=== PATIENT | female | born 1990 | race Caucasian/White ===

== ENCOUNTER 2017-07-10 01:06 | Emergency (ER) | payer MEDICAID ==
[~2017-07-10] VITALS: Ht 152.4 cm; Wt 64.2 kg
[~2017-07-10 01:06] MED LIST: ACET-1059 PO; CARI350T PO; CYCL-1 PO; DICY10CA88 PO; ESCI20TA PO; HYDR-569 PO; IBUP-1986 PO; METH-360 PO; ONDA4TAB6 PO; ONDA8TAB9 PO; SUCR1ORA2 PO; SUMA50TA PO; TRAM50TA2; TRAM50TA2 PO; ZOLP5TAB2 PO
[2017-07-10] MEDS ORDERED: ondansetron/PF 4mg/2ml inj IV ONE (03:55)
[2017-07-10] MEDS ORDERED: morphine 4 MG/ML inj SYRINge IV ONE (03:55)
[2017-07-10] MEDS ORDERED: normal saline 1000ML IV soln IVB ONE (03:55)
[2017-07-10 06:10] VITALS: BP 142/96
[2017-07-10 07:07] LABS: ALANINE AMINOTRANSFERASE 23 U/L (12-78); ALBUMIN 3.2 G/DL (3.4-5.0); ALKALINE PHOSPHATASE 83 IU/L (46-116); ANION GAP 12 (8-16); ASPARTATE AMINO TRANSFERASE 25 U/L (10-37); BILIRUBIN,TOTAL 0.3 MG/DL (0.1-1.0); BLOOD UREA NITROGEN 18 MG/DL (7-18); BUN/CREATININE RATIO 33.3 (6.6-38.0); CALCIUM 8.6 MG/DL (8.5-10.1); CHLORIDE 108 MMOL/L (99-107); CREATININE 0.54 MG/DL (0.40-0.90); GLUCOSE 87 MG/DL (70-104); SODIUM 142 MMOL/L (135-145); TOTAL CARBON DIOXIDE 22.1 MMOL/L (24-32); TOTAL PROTEIN 6.3 G/DL (6.4-8.2); eGFR > 90 ML/MIN
[2017-07-10 07:24] LABS: BASOPHILS # (AUTO) 0.1 X10'3 (0-0.2); BASOPHILS % (AUTO) 1.1 % (0-1); EOSINOPHILS # (AUTO) 0.2 X10'3 (0-0.9); EOSINOPHILS % (AUTO) 3.3 % (0-6); HEMATOCRIT 36.5 % (35.0-45.0); HEMOGLOBIN 11.9 g/dl (12.0-16.0); LYMPHOCYTES % (AUTO) 56.1 % (21-51); MEAN CORPUSCULAR HEMOGLOBIN 27.4 PG (27.0-31.0); MEAN CORPUSCULAR HGB CONC 32.7 % (33.0-36.5); MEAN CORPUSCULAR VOLUME 83.8 FL (78-98); MONOCYTES # (AUTO) 0.3 X10'3 (0-0.9); NEUTROPHILS # (AUTO) 1.8 X10'3 (1.8-7.7); NEUTROPHILS % (AUTO) 33.5 % (42-75); PLATELET COUNT 170 X10'3 (140-440); RED BLOOD COUNT 4.36 X10'6 (4.20-5.60); RED CELL DISTRIBUTION WIDTH 15.2 % (11.5-14.5); WHITE BLOOD COUNT 5.4 X10'3 (4.5-11.0)
[2017-07-10 07:33] LABS: CLARITY,URINE CLEAR (Clear); COLOR,URINE YELLOW (Yellow); GLUCOSE, URINE NEGATIVE (Neg); KETONES,URINE NEGATIVE (Neg); LEUKOCYTE ESTERASE ,URINE NEGATIVE (Neg); NITRITES, URINE NEGATIVE (Neg); OCCULT BLOOD,URINE TRACE-LYSED (Neg); PROTEIN,URINE NEGATIVE (Neg); UROBILINOGEN,URINE 0.2 E.U/dL (0.2-1.0)
[2017-07-10 07:34] LABS: UA COLLECTION TYPE CLN CATCH MIDSTREAM
[2017-07-10 07:39] LABS: BACTERIA,URINE NONE SEEN /HPF (Neg); MUCUS STRANDS NONE SEEN /LPF (Neg); RBC,URINE NONE SEEN /HPF (0-2); SQUAMOUS EPITHELIAL CELL,UR NONE SEEN /LPF (FEW); WBC,URINE 0-4 /HPF (0-4)
== END 2017-07-10 09:01 | disposition home or self-care (01) ==
LOC: ER 01:07
DX: O72.1 Other immediate postpartum hemorrhage (principal); G89.29 Other chronic pain; F12.10 Cannabis abuse, uncomplicated; Z90.89 Acquired absence of other organs; Z98.890 Other specified postprocedural states; Z79.899 Other long term (current) drug therapy; Z56.0 Unemployment, unspecified
CPT/HCPCS: 36415; 76856; 80053; 81001; 83605; 85025; 87040; 87070; 87210; 96374; 96375; 99285; J2270; J2405

== ENCOUNTER 2018-01-09 09:38 | Emergency (ER) | payer MEDICAID ==
[~2018-01-09] VITALS: Ht 152.4 cm; Wt 70.8 kg
[~2018-01-09 09:38] MED LIST changes: +HYDR-4383 PO; -HYDR-569 PO
[2018-01-09 09:44] VITALS: BP 160/105
[2018-01-09] MEDS ORDERED: LORA-269 PO (09:48)
== END 2018-01-09 10:10 | disposition home or self-care (01) ==
LOC: ER 09:38
DX: G47.00 Insomnia, unspecified (principal); F41.9 Anxiety disorder, unspecified; F32.9 Major depressive disorder, single episode, unspecified; G89.29 Other chronic pain; F12.90 Cannabis use, unspecified, uncomplicated; Z90.89 Acquired absence of other organs; Z56.0 Unemployment, unspecified; Z87.440 Personal history of urinary (tract) infections; Z87.11 Personal history of peptic ulcer disease; Z79.899 Other long term (current) drug therapy
CPT/HCPCS: 99284

== ENCOUNTER 2018-06-09 21:58 | Emergency (ER) | payer MEDICAID ==
[~2018-06-09] VITALS: Ht 152.4 cm; Wt 74.4 kg
[~2018-06-09 21:58] MED LIST changes: +LORA-269 PO
[2018-06-09 22:46] LABS: URINE HCG NEGATIVE (NEG)
[2018-06-09 22:48] LABS: CLARITY,URINE SLIGHTLY CLOUDY (Clear); COLOR,URINE YELLOW (Yellow); GLUCOSE, URINE NEGATIVE (Neg); KETONES,URINE NEGATIVE (Neg); LEUKOCYTE ESTERASE ,URINE NEGATIVE (Neg); NITRITES, URINE NEGATIVE (Neg); OCCULT BLOOD,URINE NEGATIVE (Neg); PH,URINE 5.5 (4.8-8.0); PROTEIN,URINE NEGATIVE (Neg); UA COLLECTION TYPE CLN CATCH MIDSTREAM; UROBILINOGEN,URINE 0.2 E.U/dL (0.2-1.0)
[2018-06-09 22:56] LABS: BACTERIA,URINE 3+ /HPF (Neg); RBC,URINE 0-2 /HPF (0-2); SQUAMOUS EPITHELIAL CELL,UR MANY /LPF (FEW); WBC,URINE 0-4 /HPF (0-4)
[2018-06-09] MEDS ORDERED: ondansetron 4mg rapidly disintigrating tab PO ONE (23:10)
[2018-06-09] MEDS ORDERED: ketorolac tromethamine 15mg/ml inj. IM ONE (23:10)
[2018-06-09] MEDS ORDERED: mag hydrox/Alum hydrox/simeth 30ml oral suspension PO ONE (23:10)
[2018-06-09 23:22] LABS: BASOPHILS # (AUTO) 0.1 X10'3 (0-0.2); BASOPHILS % (AUTO) 0.7 % (0-1); EOSINOPHILS # (AUTO) 0.1 X10'3 (0-0.9); EOSINOPHILS % (AUTO) 1.6 % (0-6); HEMATOCRIT 38.8 % (35.0-45.0); HEMOGLOBIN 13.1 g/dl (12.0-16.0); LYMPHOCYTES # (AUTO) 3.2 X10'3 (1.1-4.8); LYMPHOCYTES % (AUTO) 35.5 % (21-51); MEAN CORPUSCULAR HEMOGLOBIN 29.5 PG (27.0-31.0); MEAN CORPUSCULAR HGB CONC 33.7 g/dL (33.0-36.5); MEAN CORPUSCULAR VOLUME 87.4 FL (78-98); MEAN PLATELET VOLUME 8.6 FL (7.4-10.4); MONOCYTES # (AUTO) 0.4 X10'3 (0-0.9); MONOCYTES % (AUTO) 4.6 % (2-12); NEUTROPHILS # (AUTO) 5.2 X10'3 (1.8-7.7); NEUTROPHILS % (AUTO) 57.6 % (42-75); PLATELET COUNT 233 X10'3 (140-440); RED BLOOD COUNT 4.44 X10'6 (4.20-5.60)
[2018-06-09 23:31] LABS: ALANINE AMINOTRANSFERASE 19 U/L (12-78); ALBUMIN/GLOBULIN RATIO 1.3 (1.1-1.5); ALKALINE PHOSPHATASE 59 IU/L (46-116); AMYLASE 31 U/L (25-115); ANION GAP 11 (8-16); ASPARTATE AMINO TRANSFERASE 13 U/L (10-37); BILIRUBIN,TOTAL 0.3 MG/DL (0.1-1.0); BLOOD UREA NITROGEN 21 MG/DL (7-18); BUN/CREATININE RATIO 27.3 (6.6-38.0); CHLORIDE 105 MMOL/L (99-107); CREATININE 0.77 MG/DL (0.40-0.90); GLUCOSE 84 MG/DL (70-104); LIPASE 91 U/L (73-393); SODIUM 141 MMOL/L (135-145); TOTAL CARBON DIOXIDE 24.6 MMOL/L (24-32); eGFR 88 ML/MIN
[2018-06-09 23:35] LABS: INR 1.1 INR
[2018-06-10] MEDS ORDERED: morphine 4 MG/ML inj SYRINge IV ONE (01:00)
[2018-06-10] MEDS ORDERED: ONDA4TAB6 PO (01:23)
[2018-06-10 01:48] VITALS: BP 142/92
--- NOTE | 2018-06-10 01:49 | NUR ---
Patient has no IV, morphine given IM in the left deltoid with verbal order from Casey Barnes.
== END 2018-06-10 01:50 | disposition home or self-care (01) ==
LOC: ER 21:59
DX: R10.12 Left upper quadrant pain (principal); R10.32 Left lower quadrant pain; R11.2 Nausea with vomiting, unspecified; G89.29 Other chronic pain; F12.90 Cannabis use, unspecified, uncomplicated; Z90.89 Acquired absence of other organs; Z98.890 Other specified postprocedural states; Z79.899 Other long term (current) drug therapy; Z56.0 Unemployment, unspecified
CPT/HCPCS: 36415; 80053; 81001; 81025; 82150; 83690; 85025; 85610; 96372; 96374; 99283; J1885; J2270

== ENCOUNTER 2018-08-09 00:02 | Emergency (ER) | payer MEDICAID ==
[~2018-08-09] VITALS: Ht 152.4 cm; Wt 75.0 kg
[2018-08-09 00:11] VITALS: BP 142/85
[2018-08-09 00:40] LABS: URINE HCG NEGATIVE (NEG)
[2018-08-09 00:45] LABS: CLARITY,URINE CLOUDY (Clear); COLOR,URINE YELLOW (Yellow); GLUCOSE, URINE NEGATIVE (Neg); KETONES,URINE NEGATIVE (Neg); LEUKOCYTE ESTERASE ,URINE NEGATIVE (Neg); NITRITES, URINE NEGATIVE (Neg); OCCULT BLOOD,URINE NEGATIVE (Neg); PROTEIN,URINE 30 mg/dl (Neg); UROBILINOGEN,URINE 0.2 E.U/dL (0.2-1.0)
[2018-08-09 00:50] LABS: UA COLLECTION TYPE CLN CATCH MIDSTREAM
[2018-08-09 00:51] LABS: BACTERIA,URINE FEW /HPF (Neg); RBC,URINE 0-2 /HPF (0-2); SQUAMOUS EPITHELIAL CELL,UR MANY /LPF (FEW); WBC,URINE 0-4 /HPF (0-4)
[2018-08-09] MEDS ORDERED: PHEN-716 PO (03:33)
[2018-08-09] MEDS ORDERED: ibuprofen 200mg tablet PO ONE (03:35)
[2018-08-09] MEDS ORDERED: phenazopyridine 100mg tablet PO ONE (03:35)
== END 2018-08-09 03:51 | disposition home or self-care (01) ==
LOC: ER 00:03
DX: S39.012A Strain of muscle, fascia and tendon of lower back, initial encounter (principal); R30.0 Dysuria; R39.15 Urgency of urination; R35.0 Frequency of micturition; G89.29 Other chronic pain; F41.9 Anxiety disorder, unspecified; F32.9 Major depressive disorder, single episode, unspecified; Z86.69 Personal history of other diseases of the nervous system and sense organs; Z85.89 Personal history of malignant neoplasm of other organs and systems; Z98.890 Other specified postprocedural states; Z90.89 Acquired absence of other organs; Z56.0 Unemployment, unspecified; Z79.899 Other long term (current) drug therapy; X58.XXXA Exposure to other specified factors, initial encounter; Y93.89 Activity, other specified; Y92.89 Other specified places as the place of occurrence of the external cause; Y99.8 Other external cause status
CPT/HCPCS: 36415; 81001; 81025; 87088; 87491; 99283

== ENCOUNTER 2018-08-26 18:25 | Emergency (ER) | payer MEDICAID ==
[~2018-08-26] VITALS: Ht 152.4 cm; Wt 76.0 kg
[~2018-08-26 18:25] MED LIST changes: +PHEN-716 PO
--- NOTE | 2018-08-26 20:37 | NUR ---
STREP SWAB COLLECTED AND SENT TO LAB
[2018-08-26] MEDS ORDERED: PENI500T2 PO (21:15)
[2018-08-26 21:23] VITALS: BP 125/81
== END 2018-08-26 21:24 | disposition home or self-care (01) ==
LOC: ER 18:25
DX: J02.0 Streptococcal pharyngitis (principal); B95.0 Streptococcus, group A, as the cause of diseases classified elsewhere; G89.29 Other chronic pain; F41.9 Anxiety disorder, unspecified; F32.9 Major depressive disorder, single episode, unspecified; Z86.69 Personal history of other diseases of the nervous system and sense organs; Z98.890 Other specified postprocedural states; Z90.89 Acquired absence of other organs; Z85.89 Personal history of malignant neoplasm of other organs and systems; Z56.0 Unemployment, unspecified
CPT/HCPCS: 87880; 99283

== ENCOUNTER 2019-01-18 22:49 | Emergency (ER) | payer MEDICAID ==
[~2019-01-18] VITALS: Ht 152.4 cm; Wt 77.3 kg
[2019-01-18] MEDS ORDERED: normal saline 1000ML IV soln IVB ONE (23:45)
[2019-01-18] MEDS ORDERED: proCHLORperazine 10 MG/2 ml inj IV ONE (23:45)
[2019-01-18] MEDS ORDERED: morphine 2 MG/ML inj. syringe IV PRN (23:45)
[2019-01-18] MEDS ORDERED: quetiapine 100mg tablet PO ONE (23:50)
[2019-01-18] MEDS ORDERED: ZOLP10TA5 PO (23:53)
[2019-01-18] MEDS ORDERED: QUEtiapine 25mg tablet PO ONE (23:55)
[2019-01-18] MEDS ORDERED: QUEtiapine 25mg tablet PO SCH (23:55)
[2019-01-19] MEDS ORDERED: QUEtiapine 25mg tablet PO ONE (00:25)
[2019-01-19 01:23] VITALS: BP 131/98
== END 2019-01-19 01:24 | disposition home or self-care (01) ==
LOC: ER 22:50
DX: G43.909 Migraine, unspecified, not intractable, without status migrainosus (principal); G47.00 Insomnia, unspecified; G89.29 Other chronic pain; F41.9 Anxiety disorder, unspecified; F32.9 Major depressive disorder, single episode, unspecified; Z79.899 Other long term (current) drug therapy; Z79.1 Long term (current) use of non-steroidal anti-inflammatories (NSAID); Z87.11 Personal history of peptic ulcer disease; Z90.89 Acquired absence of other organs; Z98.890 Other specified postprocedural states; Z56.0 Unemployment, unspecified
CPT/HCPCS: 96374; 96375; 99283; J0780; J2270; J7030

== ENCOUNTER 2019-02-15 16:06 | Emergency (ER) | payer MEDICAID ==
[~2019-02-15] VITALS: Ht 152.4 cm; Wt 72.7 kg
[~2019-02-15 16:06] MED LIST changes: +ZOLP10TA5 PO
[2019-02-15 16:07] VITALS: BP 142/102
[2019-02-15] MEDS ORDERED: ketorolac tromethamine 15mg/ml inj. IM ONE (17:10)
[2019-02-15] MEDS ORDERED: ZOLP5TAB8 PO (17:13)
== END 2019-02-15 17:40 | disposition home or self-care (01) ==
LOC: ER 16:06
DX: G43.909 Migraine, unspecified, not intractable, without status migrainosus (principal); G89.29 Other chronic pain; F41.9 Anxiety disorder, unspecified; F32.9 Major depressive disorder, single episode, unspecified; Z98.890 Other specified postprocedural states; Z90.89 Acquired absence of other organs; Z56.0 Unemployment, unspecified; Z79.899 Other long term (current) drug therapy
CPT/HCPCS: 96372; 99283; J1885

== ENCOUNTER 2019-02-17 14:49 | Emergency (ER) | payer MEDICAID ==
[~2019-02-17] VITALS: Ht 152.4 cm; Wt 72.0 kg
[~2019-02-17 14:49] MED LIST changes: +ZOLP5TAB8 PO
[2019-02-17] MEDS ORDERED: albuterol 2.5 MG/3 ML nebule NEB ONE (16:10)
[2019-02-17] MEDS ORDERED: AZIT-63 PO (18:19)
[2019-02-17] MEDS ORDERED: ALBU8.5H8 INH (18:19)
[2019-02-17] MEDS ORDERED: azithromycin 250mg tablet PO ONE (18:20)
[2019-02-17 18:29] LABS: D-DIMER 0.37 MG/L FEU (0-0.50)
[2019-02-17 18:52] VITALS: BP 133/92
[2019-02-17] MEDS ORDERED: DM/P240L8 PO (19:20)
== END 2019-02-17 19:25 | disposition home or self-care (01) ==
LOC: ER 14:50
DX: J40 Bronchitis, not specified as acute or chronic (principal); G43.909 Migraine, unspecified, not intractable, without status migrainosus; G89.29 Other chronic pain; Z56.0 Unemployment, unspecified; Z90.89 Acquired absence of other organs; Z98.890 Other specified postprocedural states; Z79.899 Other long term (current) drug therapy; Z79.2 Long term (current) use of antibiotics
CPT/HCPCS: 36415; 71046; 85379; 94640; 94760; 99284

== ENCOUNTER 2019-05-18 01:01 | Emergency (ER) | payer MEDICAID ==
[~2019-05-18] VITALS: Ht 154.9 cm; Wt 81.8 kg
[~2019-05-18 01:01] MED LIST changes: +ALBU8.5H8 INH; +DM/P240L8 PO; -ZOLP10TA5 PO; -ZOLP5TAB8 PO
[2019-05-18 01:05] VITALS: BP 146/118
[2019-05-18] MEDS ORDERED: ZOLP6.2526 PO (01:13)
[2019-05-18] MEDS ORDERED: SUMAtriptan succ. 6 MG/0.5ml vial SQ ONE (01:15)
== END 2019-05-18 01:21 | disposition home or self-care (01) ==
LOC: ER 01:02
DX: F41.9 Anxiety disorder, unspecified (principal); G43.909 Migraine, unspecified, not intractable, without status migrainosus; G89.29 Other chronic pain; F32.9 Major depressive disorder, single episode, unspecified; Z87.440 Personal history of urinary (tract) infections; Z56.0 Unemployment, unspecified; Z87.11 Personal history of peptic ulcer disease; Z79.899 Other long term (current) drug therapy
CPT/HCPCS: 99283; J3030

== ENCOUNTER 2019-05-20 07:55 | Emergency (ER) | payer MEDICAID ==
[~2019-05-20] VITALS: Ht 154.9 cm; Wt 72.7 kg
[~2019-05-20 07:55] MED LIST changes: +ZOLP6.2526 PO
[2019-05-20] MEDS ORDERED: SUMAtriptan succ. 6 MG/0.5ml vial SQ ONE (08:20)
[2019-05-20] MEDS ORDERED: ketorolac trometh inj. 60 MG/2 ML VIAL IM ONE (08:20)
[2019-05-20] MEDS ORDERED: divalproex sodium 250mg tablet PO ONE (08:20)
[2019-05-20] MEDS ORDERED: SUMA50TA PO (08:23)
--- NOTE | 2019-05-20 09:03 | NUR ---
reassesed patient head pain 09/27 but neasua is better, will continue to monitor
[2019-05-20 09:26] VITALS: BP 115/95
== END 2019-05-20 09:32 | disposition home or self-care (01) ==
LOC: ER 07:55
DX: G43.109 Migraine with aura, not intractable, without status migrainosus (principal); G89.29 Other chronic pain; F32.9 Major depressive disorder, single episode, unspecified; F41.0 Panic disorder [episodic paroxysmal anxiety]; R11.2 Nausea with vomiting, unspecified; Z87.440 Personal history of urinary (tract) infections; Z87.11 Personal history of peptic ulcer disease; Z56.0 Unemployment, unspecified
CPT/HCPCS: 96372; 99284; J1885; J3030

== ENCOUNTER 2019-05-26 23:53 | Emergency (ER) | payer MEDICAID ==
[~2019-05-26] VITALS: Ht 152.4 cm; Wt 72.7 kg
[2019-05-27 00:10] VITALS: BP 144/85
[2019-05-27] MEDS ORDERED: BUTA-281 PO (00:28)
[2019-05-27] MEDS ORDERED: ESCI-10 PO (00:28)
[2019-05-27] MEDS ORDERED: ketorolac trometh inj. 60 MG/2 ML VIAL IM ONE (00:30)
== END 2019-05-27 00:53 | disposition home or self-care (01) ==
LOC: ER 23:54
DX: G43.909 Migraine, unspecified, not intractable, without status migrainosus (principal); G89.29 Other chronic pain; F17.200 Nicotine dependence, unspecified, uncomplicated; Z56.0 Unemployment, unspecified; Z98.890 Other specified postprocedural states; Z90.89 Acquired absence of other organs; Z87.11 Personal history of peptic ulcer disease; Z79.899 Other long term (current) drug therapy
CPT/HCPCS: 96372; 99283; J1885

== ENCOUNTER 2019-11-17 20:55 | Emergency (ER) | payer MEDICAID ==
[~2019-11-17] VITALS: Ht 157.5 cm; Wt 80.8 kg
[~2019-11-17 20:55] MED LIST changes: +BUTA-281 PO; +ESCI-10 PO; -ZOLP6.2526 PO; +ZOLP6.2539 PO
[2019-11-17 22:38] VITALS: BP 110/65
[2019-11-17] MEDS ORDERED: SUMA50TA PO (23:15)
[2019-11-17] MEDS ORDERED: PROC-8 PO (23:15)
[2019-11-17] MEDS ORDERED: ZOLP5TAB2 PO (23:15)
== END 2019-11-17 23:27 | disposition home or self-care (01) ==
LOC: ER 20:55
DX: G43.909 Migraine, unspecified, not intractable, without status migrainosus (principal); G89.29 Other chronic pain; F41.9 Anxiety disorder, unspecified; F32.9 Major depressive disorder, single episode, unspecified; Z86.69 Personal history of other diseases of the nervous system and sense organs; Z87.11 Personal history of peptic ulcer disease; Z87.440 Personal history of urinary (tract) infections; Z85.41 Personal history of malignant neoplasm of cervix uteri; Z90.89 Acquired absence of other organs; Z98.890 Other specified postprocedural states; Z56.0 Unemployment, unspecified; Z79.899 Other long term (current) drug therapy
CPT/HCPCS: 99283

== ENCOUNTER 2020-02-15 20:26 | Emergency (ER) | payer MEDICAID ==
[~2020-02-15] VITALS: Ht 157.5 cm; Wt 88.6 kg
[~2020-02-15 20:26] MED LIST changes: +PROC-8 PO
[2020-02-15 20:39] VITALS: BP 143/95
[2020-02-15] MEDS ORDERED: dexamethasone sod phosphate 10mg/ml inj PO STA (20:44)
[2020-02-15] MEDS ORDERED: metoclopramide 10mg tablet PO ONE (20:45)
[2020-02-15] MEDS ORDERED: ketorolac trometh inj. 60 MG/2 ML VIAL IM ONE (20:45)
[2020-02-15] MEDS ORDERED: LORazepam 1 MG tablet PO ONE (20:45)
[2020-02-15] MEDS ORDERED: zolpidem 5mg tablet PO ONE (20:45)
== END 2020-02-15 21:05 | disposition home or self-care (01) ==
LOC: ER 20:28
DX: G43.909 Migraine, unspecified, not intractable, without status migrainosus (principal); Z87.448 Personal history of other diseases of urinary system; F31.9 Bipolar disorder, unspecified; F32.9 Major depressive disorder, single episode, unspecified; Z56.0 Unemployment, unspecified; Z79.899 Other long term (current) drug therapy
CPT/HCPCS: 96372; 99284; J1100; J1885; J8597

== ENCOUNTER 2020-02-19 18:57 | Emergency (ER) | payer MEDICAID ==
[~2020-02-19] VITALS: Ht 157.5 cm; Wt 88.6 kg
[2020-02-19 20:52] VITALS: BP 139/79
[2020-02-19] MEDS ORDERED: SUMA25TA35 PO ×2 (21:54→22:05)
[2020-02-19] MEDS ORDERED: VAL5T PO (21:54)
[2020-02-19] MEDS ORDERED: ZOLP5TAB2 PO ×2 (22:01→22:05)
== END 2020-02-19 22:07 | disposition home or self-care (01) ==
LOC: ER 18:59
DX: G43.909 Migraine, unspecified, not intractable, without status migrainosus (principal); G89.29 Other chronic pain; F41.9 Anxiety disorder, unspecified; F32.9 Major depressive disorder, single episode, unspecified; Z86.69 Personal history of other diseases of the nervous system and sense organs; Z87.11 Personal history of peptic ulcer disease; Z87.440 Personal history of urinary (tract) infections; Z85.41 Personal history of malignant neoplasm of cervix uteri; Z98.890 Other specified postprocedural states; Z90.89 Acquired absence of other organs; Z56.0 Unemployment, unspecified; Z79.899 Other long term (current) drug therapy
CPT/HCPCS: 99283

== ENCOUNTER 2020-02-22 16:21 | Emergency (ER) | payer MEDICAID ==
[~2020-02-22] VITALS: Ht 157.5 cm; Wt 88.6 kg
[~2020-02-22 16:21] MED LIST changes: +SUMA25TA35 PO
[2020-02-22] MEDS ORDERED: ketorolac tromethamine 15mg/ml inj. IV ONE (16:45)
[2020-02-22] MEDS ORDERED: normal saline 1000ML IV soln IVB ONE ×2 (16:45→18:55)
[2020-02-22] MEDS ORDERED: acetaminophen 325mg tablet PO ONE (16:45)
[2020-02-22 17:42] LABS: BASOPHILS % (AUTO) 0.6 % (0-1); EOSINOPHILS % (AUTO) 0.1 % (0-6); HEMATOCRIT 41.6 % (35.0-45.0); HEMOGLOBIN 13.8 g/dl (12.0-16.0); LYMPHOCYTES # (AUTO) 0.7 X10'3 (1.1-4.8); LYMPHOCYTES % (AUTO) 24.1 % (21-51); MEAN CORPUSCULAR HGB CONC 33.1 g/dL (33.0-36.5); MEAN CORPUSCULAR VOLUME 87.4 FL (78-98); MEAN PLATELET VOLUME 9.1 FL (7.4-10.4); MONOCYTES # (AUTO) 0.2 X10'3 (0-0.9); MONOCYTES % (AUTO) 6.9 % (2-12); NEUTROPHILS # (AUTO) 1.8 X10'3 (1.8-7.7); NEUTROPHILS % (AUTO) 68.3 % (42-75); PLATELET COUNT 97 X10'3 (140-440); RED BLOOD COUNT 4.76 X10'6 (4.20-5.60); RED CELL DISTRIBUTION WIDTH 13.6 % (11.5-14.5); WHITE BLOOD COUNT 2.7 X10'3 (4.5-11.0)
[2020-02-22 17:59] LABS: ALANINE AMINOTRANSFERASE 57 U/L (12-78); ALBUMIN 3.8 G/DL (3.4-5.0); ALKALINE PHOSPHATASE 61 IU/L (46-116); ANION GAP 11 (8-16); ASPARTATE AMINO TRANSFERASE 47 U/L (10-37); BILIRUBIN,TOTAL 0.2 MG/DL (0.1-1.0); BLOOD UREA NITROGEN 16 MG/DL (7-18); CALCIUM 8.9 MG/DL (8.5-10.1); CHLORIDE 103 MMOL/L (99-107); CREATININE 0.84 MG/DL (0.40-0.90); GLUCOSE 89 MG/DL (70-104); SODIUM 142 MMOL/L (135-145); TOTAL CARBON DIOXIDE 27.8 MMOL/L (24-32); TOTAL PROTEIN 7.7 G/DL (6.4-8.2); eGFR 79 ML/MIN
[2020-02-22 18:28] LABS: ANISOCYTOSIS FEW; PLATELET ESTIMATE DECREASED; TOTAL CELLS COUNTED 100
[2020-02-22 18:42] VITALS: BP 16/67
[2020-02-22 19:00] LABS: URINE HCG NEGATIVE (NEG)
[2020-02-22 19:01] LABS: CLARITY,URINE CLEAR (Clear); COLOR,URINE YELLOW (Yellow); GLUCOSE, URINE NEGATIVE (Neg); KETONES,URINE 15 mg/dl (Neg); LEUKOCYTE ESTERASE ,URINE NEGATIVE (Neg); NITRITES, URINE NEGATIVE (Neg); OCCULT BLOOD,URINE NEGATIVE (Neg); PH,URINE 5.5 (4.8-8.0); PROTEIN,URINE NEGATIVE (Neg)
[2020-02-22 19:14] LABS: UA COLLECTION TYPE CLN CATCH MIDSTREAM
== END 2020-02-22 20:07 | disposition home or self-care (01) ==
LOC: ER 16:22
DX: B34.9 Viral infection, unspecified (principal); R05 Cough; R50.9 Fever, unspecified; R11.2 Nausea with vomiting, unspecified; Z20.828 Contact with and (suspected) exposure to other viral communicable diseases; G43.909 Migraine, unspecified, not intractable, without status migrainosus; G89.29 Other chronic pain; F41.9 Anxiety disorder, unspecified; F31.9 Bipolar disorder, unspecified; Z86.69 Personal history of other diseases of the nervous system and sense organs; Z87.11 Personal history of peptic ulcer disease; Z85.41 Personal history of malignant neoplasm of cervix uteri; Z87.440 Personal history of urinary (tract) infections; Z90.89 Acquired absence of other organs; Z98.890 Other specified postprocedural states; Z56.0 Unemployment, unspecified; Z79.899 Other long term (current) drug therapy
CPT/HCPCS: 36415; 71045; 80053; 81003; 81025; 84145; 85007; 85025; 87502; 87503; 87635; 96361; 96374; 99284; J1885; J7030

== ENCOUNTER 2020-08-10 17:47 | Emergency (ER) | payer MEDICAID ==
[~2020-08-10] VITALS: Ht 152.4 cm; Wt 95.0 kg
[~2020-08-10 17:47] MED LIST changes: -SUMA25TA35 PO
[2020-08-10 18:00] VITALS: BP 118/56
[2020-08-10] MEDS ORDERED: CEPH250T PO (20:26)
[2020-08-10] MEDS ORDERED: HYDR-3965 PO (20:26)
[2020-08-10] MEDS ORDERED: NAPR-56 PO (20:26)
== END 2020-08-10 20:34 | disposition home or self-care (01) ==
LOC: ER 17:47
DX: K08.89 Other specified disorders of teeth and supporting structures (principal); G43.909 Migraine, unspecified, not intractable, without status migrainosus; G40.909 Epilepsy, unspecified, not intractable, without status epilepticus; G89.29 Other chronic pain; Z87.11 Personal history of peptic ulcer disease; Z87.440 Personal history of urinary (tract) infections; Z85.9 Personal history of malignant neoplasm, unspecified; Z87.410 Personal history of cervical dysplasia; Z56.0 Unemployment, unspecified
CPT/HCPCS: 99283

== ENCOUNTER 2020-08-11 09:54 | Emergency (ER) | payer MEDICAID ==
[~2020-08-11] VITALS: Ht 157.5 cm; Wt 95.5 kg
[~2020-08-11 09:54] MED LIST changes: +CEPH250T PO; +HYDR-3965 PO; +NAPR-56 PO
[2020-08-11 10:48] LABS: CLARITY,URINE SLIGHTLY CLOUDY (Clear); COLOR,URINE YELLOW (Yellow); GLUCOSE, URINE NEGATIVE (Neg); KETONES,URINE NEGATIVE (Neg); LEUKOCYTE ESTERASE ,URINE NEGATIVE (Neg); NITRITES, URINE NEGATIVE (Neg); OCCULT BLOOD,URINE NEGATIVE (Neg); PROTEIN,URINE NEGATIVE (Neg)
[2020-08-11 10:49] LABS: URINE HCG NEGATIVE (NEG)
[2020-08-11 10:53] LABS: UA COLLECTION TYPE CLN CATCH MIDSTREAM
[2020-08-11 10:54] LABS: WBC,URINE 0-4 /HPF (0-4)
[2020-08-11 10:55] LABS: BACTERIA,URINE FEW /HPF (Neg); RBC,URINE NONE SEEN /HPF (0-2); SQUAMOUS EPITHELIAL CELL,UR MODERATE /LPF (FEW)
[2020-08-11 10:56] LABS: AMORPHOUS URATES 1+
[2020-08-11 11:11] LABS: BASOPHILS # (AUTO) 0.1 X10'3 (0-0.2); BASOPHILS % (AUTO) 1.4 % (0-1); EOSINOPHILS # (AUTO) 0.2 X10'3 (0-0.9); EOSINOPHILS % (AUTO) 2.8 % (0-6); HEMATOCRIT 36.8 % (35.0-45.0); HEMOGLOBIN 12.8 g/dl (12.0-16.0); LYMPHOCYTES # (AUTO) 3.5 X10'3 (1.1-4.8); LYMPHOCYTES % (AUTO) 53.4 % (21-51); MEAN CORPUSCULAR HEMOGLOBIN 30.4 PG (27.0-31.0); MEAN CORPUSCULAR HGB CONC 34.8 g/dL (33.0-36.5); MEAN CORPUSCULAR VOLUME 87.1 FL (78-98); MONOCYTES # (AUTO) 0.5 X10'3 (0-0.9); NEUTROPHILS # (AUTO) 2.3 X10'3 (1.8-7.7); NEUTROPHILS % (AUTO) 34.4 % (42-75); PLATELET COUNT 238 X10'3 (140-440); RED BLOOD COUNT 4.22 X10'6 (4.20-5.60); RED CELL DISTRIBUTION WIDTH 13.3 % (11.5-14.5); WHITE BLOOD COUNT 6.6 X10'3 (4.5-11.0)
[2020-08-11 11:27] LABS: ALANINE AMINOTRANSFERASE 22 U/L (12-78); ALBUMIN 3.6 G/DL (3.4-5.0); ALBUMIN/GLOBULIN RATIO 1.2 (1.1-1.5); ALKALINE PHOSPHATASE 51 IU/L (46-116); ANION GAP 12 (8-16); ASPARTATE AMINO TRANSFERASE 16 U/L (10-37); BILIRUBIN,TOTAL 0.2 MG/DL (0.1-1.0); BLOOD UREA NITROGEN 24 MG/DL (7-18); BUN/CREATININE RATIO 38.7 (6.6-38.0); CHLORIDE 106 MMOL/L (99-107); CREATININE 0.62 MG/DL (0.40-0.90); GLUCOSE 89 MG/DL (70-104); LIPASE 72 U/L (73-393); POTASSIUM 3.6 MMOL/L (3.5-5.1); SODIUM 141 MMOL/L (135-145); TOTAL CARBON DIOXIDE 23.3 MMOL/L (24-32); TOTAL PROTEIN 6.7 G/DL (6.4-8.2); eGFR > 90 ML/MIN
[2020-08-11 11:28] LABS: TOTAL CELLS COUNTED 100
[2020-08-11 11:30] VITALS: BP 154/90
[2020-08-11 11:30] LABS: PLATELET ESTIMATE NORMAL
[2020-08-11] MEDS ORDERED: ondansetron 4mg rapidly disintigrating tab PO ONE (11:50)
[2020-08-11] MEDS ORDERED: mag hydrox/Alum hydrox/simeth 30ml oral suspension PO ONE (11:50)
[2020-08-11] MEDS ORDERED: LIDOcaine Viscous 15ml cup MM ONE (11:50)
[2020-08-11] MEDS ORDERED: pantoprazole 40mg Tablet.DR PO ONE (11:50)
== END 2020-08-11 13:27 | disposition home or self-care (01) ==
LOC: ER 09:54
DX: R10.10 Upper abdominal pain, unspecified (principal); R11.0 Nausea; G47.00 Insomnia, unspecified; D72.820 Lymphocytosis (symptomatic); G89.29 Other chronic pain; F41.9 Anxiety disorder, unspecified; F31.9 Bipolar disorder, unspecified; G43.909 Migraine, unspecified, not intractable, without status migrainosus; Z86.69 Personal history of other diseases of the nervous system and sense organs; Z87.11 Personal history of peptic ulcer disease; Z87.440 Personal history of urinary (tract) infections; Z85.41 Personal history of malignant neoplasm of cervix uteri; Z90.89 Acquired absence of other organs; Z98.890 Other specified postprocedural states; Z56.0 Unemployment, unspecified; Z79.2 Long term (current) use of antibiotics; Z88.8 Allergy status to other drugs, medicaments and biological substances; Z79.899 Other long term (current) drug therapy
CPT/HCPCS: 80053; 81001; 81025; 83690; 85007; 85025; 99284

== ENCOUNTER 2021-01-20 07:51 | Emergency (ER) | payer MEDICAID ==
[~2021-01-20] VITALS: Ht 157.5 cm; Wt 72.0 kg
[~2021-01-20 07:51] MED LIST changes: +ALBU8.5H17 INH; -ALBU8.5H8 INH; -CEPH250T PO; -HYDR-3965 PO; -NAPR-56 PO
[2021-01-20 07:58] VITALS: BP 116/74
[2021-01-20] MEDS ORDERED: LIDOcaine 1% W/epiNEPHrine 1:200,000 10ml vial ONE (08:00)
[2021-01-20] MEDS ORDERED: AMOX500C2 PO (08:48)
[2021-01-20] MEDS ORDERED: HYDR-3965 PO (08:48)
== END 2021-01-20 09:08 | disposition home or self-care (01) ==
LOC: ER 07:52
DX: K08.89 Other specified disorders of teeth and supporting structures (principal); G43.909 Migraine, unspecified, not intractable, without status migrainosus; G89.29 Other chronic pain; F41.9 Anxiety disorder, unspecified; F31.9 Bipolar disorder, unspecified; Z86.69 Personal history of other diseases of the nervous system and sense organs; Z87.11 Personal history of peptic ulcer disease; Z85.41 Personal history of malignant neoplasm of cervix uteri; Z98.890 Other specified postprocedural states; Z90.89 Acquired absence of other organs; Z56.0 Unemployment, unspecified; Z79.2 Long term (current) use of antibiotics; Z79.899 Other long term (current) drug therapy
CPT/HCPCS: 64400; 99284; J3490

== ENCOUNTER 2021-03-15 09:50 | Emergency (ER) | payer MEDICAID ==
[~2021-03-15] VITALS: Ht 154.9 cm; Wt 75.0 kg
[2021-03-15] MEDS ORDERED: CYCL-1 PO (11:43)
[2021-03-15 12:17] VITALS: BP 117/75
== END 2021-03-15 12:19 | disposition home or self-care (01) ==
LOC: ER 09:50
DX: S46.012A Strain of muscle(s) and tendon(s) of the rotator cuff of left shoulder, initial encounter (principal); M25.512 Pain in left shoulder; R20.0 Anesthesia of skin; G43.909 Migraine, unspecified, not intractable, without status migrainosus; G89.29 Other chronic pain; F41.9 Anxiety disorder, unspecified; F31.9 Bipolar disorder, unspecified; Z86.69 Personal history of other diseases of the nervous system and sense organs; Z87.11 Personal history of peptic ulcer disease; Z87.440 Personal history of urinary (tract) infections; Z98.890 Other specified postprocedural states; Z90.89 Acquired absence of other organs; Z85.41 Personal history of malignant neoplasm of cervix uteri; Z56.0 Unemployment, unspecified; Z79.899 Other long term (current) drug therapy; X58.XXXA Exposure to other specified factors, initial encounter; Y93.89 Activity, other specified; Y92.89 Other specified places as the place of occurrence of the external cause; Y99.8 Other external cause status
CPT/HCPCS: 99282

== ENCOUNTER 2021-12-04 22:45 | Emergency (ER) | payer MEDICAID ==
[~2021-12-04] VITALS: Ht 160 cm; Wt 100.0 kg
[2021-12-05] MEDS ORDERED: amox tr/potassium clavulanate 875/125mg TAB PO ONE (04:25)
[2021-12-05] MEDS ORDERED: HYDROcodone/acetaminophen 10/325mg tab PO ONE (04:25)
[2021-12-05] MEDS ORDERED: AMOX-117 PO (04:27)
[2021-12-05] MEDS ORDERED: HYDR-3965 PO (04:27)
[2021-12-05] MEDS ORDERED: MICO24CM2 VG (04:56)
[2021-12-05 05:03] VITALS: BP 140/80
== END 2021-12-05 05:05 | disposition home or self-care (01) ==
LOC: ER 22:46
DX: S02.5XXA Fracture of tooth (traumatic), initial encounter for closed fracture (principal); K08.89 Other specified disorders of teeth and supporting structures; G43.909 Migraine, unspecified, not intractable, without status migrainosus; G89.29 Other chronic pain; F41.9 Anxiety disorder, unspecified; F31.9 Bipolar disorder, unspecified; Z86.69 Personal history of other diseases of the nervous system and sense organs; Z87.11 Personal history of peptic ulcer disease; Z85.41 Personal history of malignant neoplasm of cervix uteri; Z90.89 Acquired absence of other organs; Z56.0 Unemployment, unspecified; Z98.890 Other specified postprocedural states; Z79.2 Long term (current) use of antibiotics; Z79.899 Other long term (current) drug therapy; X58.XXXA Exposure to other specified factors, initial encounter; Y93.89 Activity, other specified; Y92.89 Other specified places as the place of occurrence of the external cause; Y99.8 Other external cause status
CPT/HCPCS: 99283

== ENCOUNTER 2021-12-15 22:28 | Emergency (ER) | payer MEDICAID ==
[~2021-12-15] VITALS: Ht 157.5 cm; Wt 100.0 kg
[~2021-12-15 22:28] MED LIST changes: +MICO24CM2 VG
[2021-12-15] MEDS ORDERED: clindamycin 150mg capsule PO ONE (23:00)
[2021-12-15] MEDS ORDERED: ondansetron 4mg rapidly disintigrating tab PO ONE (23:00)
[2021-12-15] MEDS ORDERED: HYDROcodone/acetaminophen 5mg/325mg tablet PO ONE (23:00)
[2021-12-15] MEDS ORDERED: HYDR-3965 PO (23:00)
[2021-12-15] MEDS ORDERED: CLIN150C2 PO (23:12)
[2021-12-15 23:15] VITALS: BP 128/86
== END 2021-12-15 23:16 | disposition home or self-care (01) ==
LOC: ER 22:28
DX: K08.89 Other specified disorders of teeth and supporting structures (principal); G43.909 Migraine, unspecified, not intractable, without status migrainosus; G89.29 Other chronic pain; M54.9 Dorsalgia, unspecified; F31.9 Bipolar disorder, unspecified; Z56.0 Unemployment, unspecified; Z79.899 Other long term (current) drug therapy
CPT/HCPCS: 99283

== ENCOUNTER 2021-12-26 20:26 | Emergency (ER) | payer MEDICAID ==
[~2021-12-26] VITALS: Ht 160 cm; Wt 100.0 kg
[~2021-12-26 20:26] MED LIST changes: +CLIN150C2 PO; +HYDR-3965 PO
[2021-12-26 20:51] VITALS: BP 146/83
[2021-12-26] MEDS ORDERED: HYDROcodone/acetaminophen 5mg/325mg tablet PO ONE (21:25)
[2021-12-26] MEDS ORDERED: naproxen 500mg tablet PO ONE (21:25)
[2021-12-26] MEDS ORDERED: penicillin V potassium 500mg tablet PO ONE (21:25)
[2021-12-26] MEDS ORDERED: NAPR-56 PO (21:28)
[2021-12-26] MEDS ORDERED: PENI250T2 PO (21:28)
[2021-12-26] MEDS ORDERED: TRAM50TA2 PO (21:28)
== END 2021-12-26 22:09 | disposition home or self-care (01) ==
LOC: ER 20:27
DX: K08.89 Other specified disorders of teeth and supporting structures (principal); G43.909 Migraine, unspecified, not intractable, without status migrainosus; G89.29 Other chronic pain; F41.9 Anxiety disorder, unspecified; F31.9 Bipolar disorder, unspecified; Z86.69 Personal history of other diseases of the nervous system and sense organs; Z87.11 Personal history of peptic ulcer disease; Z87.440 Personal history of urinary (tract) infections; Z85.41 Personal history of malignant neoplasm of cervix uteri; Z90.89 Acquired absence of other organs; Z98.890 Other specified postprocedural states; Z56.0 Unemployment, unspecified; Z79.899 Other long term (current) drug therapy
CPT/HCPCS: 99284

== ENCOUNTER 2022-01-12 23:09 | Emergency (ER) | payer MEDICAID ==
[~2022-01-12] VITALS: Ht 160 cm; Wt 100.0 kg
[~2022-01-12 23:09] MED LIST changes: -CLIN150C2 PO; +NAPR-56 PO
[2022-01-12 23:23] VITALS: BP 148/98
[2022-01-13] MEDS ORDERED: PENI500T2 PO (12:27)
== END 2022-01-13 04:52 | disposition left against medical advice (07) ==
LOC: ER 23:10
DX: K08.89 Other specified disorders of teeth and supporting structures (principal); Z53.21 Procedure and treatment not carried out due to patient leaving prior to being seen by health care provider

== ENCOUNTER 2022-04-29 01:30 | Emergency (ER) | payer MEDICAID ==
[~2022-04-29] VITALS: Ht 160 cm; Wt 100.0 kg
[~2022-04-29 01:30] MED LIST changes: -HYDR-3965 PO; -NAPR-56 PO
[2022-04-29 01:51] VITALS: BP 131/92
[2022-04-29] MEDS ORDERED: ACET-3068 PO (04:57)
[2022-04-29] MEDS ORDERED: PENI500T2 PO (04:57)
[2022-04-29] MEDS ORDERED: acetaminophen w/codeine (30MG) #3 tablet PO ONE (05:10)
== END 2022-04-29 05:17 | disposition home or self-care (01) ==
LOC: ER 01:31
DX: K08.89 Other specified disorders of teeth and supporting structures (principal); G43.909 Migraine, unspecified, not intractable, without status migrainosus; G89.29 Other chronic pain; F41.9 Anxiety disorder, unspecified; F31.9 Bipolar disorder, unspecified; Z56.0 Unemployment, unspecified; Z90.89 Acquired absence of other organs; Z98.890 Other specified postprocedural states; Z79.899 Other long term (current) drug therapy
CPT/HCPCS: 99283

== ENCOUNTER 2023-07-12 16:16 | Emergency (ER) | payer MEDICAID ==
[~2023-07-12] VITALS: Ht 154.9 cm; Wt 88.2 kg
[~2023-07-12 16:16] MED LIST changes: +BUTA-245 PO; -BUTA-281 PO
[2023-07-12 16:23] VITALS: BP 115/74; PULSE 71; RESP 16; TEMP 98.6; O2SAT 99
== END 2023-07-12 16:39 | disposition home or self-care (01) ==
LOC: ER 16:17
DX: J11.1 Influenza due to unidentified influenza virus with other respiratory manifestations (principal); G43.909 Migraine, unspecified, not intractable, without status migrainosus; F31.9 Bipolar disorder, unspecified; Z79.899 Other long term (current) drug therapy; Z79.2 Long term (current) use of antibiotics
CPT/HCPCS: 99281

== ENCOUNTER 2024-04-18 13:58 | Emergency (ER) | payer MEDICAID ==
[~2024-04-18] VITALS: Ht 154.9 cm; Wt 84.8 kg
[~2024-04-18 13:58] MED LIST changes: -ZOLP6.2539 PO; +ZOLP6.2547 PO
[2024-04-18 14:03] VITALS: BP 121/88; PULSE 85; RESP 16; O2SAT 99
[2024-04-18] MEDS ORDERED: TRAM50TA2 PO (16:08)
[2024-04-18 17:01] VITALS: TEMP 98
== END 2024-04-18 17:03 | disposition home or self-care (01) ==
LOC: ER 13:59
DX: M25.662 Stiffness of left knee, not elsewhere classified (principal); F31.9 Bipolar disorder, unspecified; Z85.41 Personal history of malignant neoplasm of cervix uteri; Z90.89 Acquired absence of other organs; Z98.890 Other specified postprocedural states
CPT/HCPCS: 29505; 73564; 99283

== ENCOUNTER 2024-05-12 17:36 | Emergency (ER) | payer MEDICAID ==
[~2024-05-12] VITALS: Ht 154.9 cm; Wt 86.4 kg
[2024-05-12] MEDS ORDERED: TRAM50TA2 PO (19:42)
[2024-05-12 19:44] VITALS: BP 128/89; PULSE 99; RESP 20; TEMP 98.6; O2SAT 99
== END 2024-05-12 19:46 | disposition home or self-care (01) ==
LOC: ER 17:37
DX: Z00.8 Encounter for other general examination (principal); Z76.0 Encounter for issue of repeat prescription; G43.909 Migraine, unspecified, not intractable, without status migrainosus; F41.9 Anxiety disorder, unspecified; F31.9 Bipolar disorder, unspecified; Z85.41 Personal history of malignant neoplasm of cervix uteri; Z90.89 Acquired absence of other organs
CPT/HCPCS: 99281

== ENCOUNTER 2024-06-19 21:25 | Emergency (ER) | payer MEDICAID ==
[~2024-06-19] VITALS: Ht 154.9 cm; Wt 86.1 kg
[2024-06-19] MEDS ORDERED: HYDR-3965 PO (22:26)
--- NOTE | 2024-06-19 22:27 | Physician Documentation ---
History of Present Illness General Chief Complaint: Knee Pain Stated Complaint: KNEE PAIN Time Seen by MD: 22:14 Primary Medical Doctor: Dr. Banda at [facility] Mode of Arrival: Ambulatory History of Present Illness Initial Comments 34-year-old female who is status post meniscus repair three weeks ago in the left knee. Was using crutches when she tripped on a child's toy and twisted it and re inflamed her knee. Pain has not been responsive to ibuprofen and she has been without sleep. Presents to the emergency department for evaluation of breakthrough pain management prior to contacting her orthopedist on Saturday. Medication Reconciliation Allergies: Coded Allergies: No Known Allergies (Unverified , 06/19/24) Scheduled Albuterol Sulfate (Proair Hfa), 2 PUFFS INH Q4HPRN Cyclobenzaprine* (Cyclobenzaprine*), 1 TAB PO HS Dicyclomine Hcl* (Bentyl*), 1 CAP PO TID Dm/PE/Acetaminophen/Doxylamine (Tylenol Cold M-S Nighttime Liq), 10 ML PO nightly Escitalopram Oxalate (Lexapro), 1 TABLET PO DAILY Escitalopram Oxalate (Lexapro), 1 TAB PO DAILY Hydrocodone/Acetaminophen (Gaston 5-325 Tablet), 1 TAB PO TID PRN Ibuprofen (Ibuprofen), 1 TAB PO Q8H Ibuprofen (Ibuprofen), 1 TAB PO Q8H Lorazepam (Ativan), 1 TAB PO HS Methocarbamol (Robaxin-750), 1 TABLET PO QID Methocarbamol (Robaxin-750), 3 TAB PO Q8H Miconazole Nitrate (Monistat 3), 1 APPLICATOR VG HS Ondansetron Hcl (Zofran), 1 TABLET PO Q8H Ondansetron Hcl (Zofran), 1 TAB PO Q8H Prochlorperazine Maleate (Compazine), 1 TAB PO Q6H Sucralfate (Carafate), 10 ML PO ACHS Sucralfate (Carafate), 10 ML PO QID Sumatriptan Succinate* (Imitrex*), 1 TAB PO UD Zolpidem Tartrate (Ambien), 1 TABLET PO HS Zolpidem Tartrate (Zolpidem Tartrate), 1 TAB PO HS Zolpidem Tartrate (Ambien), 1 TAB PO HSPRN Zolpidem Tartrate (Ambien), 1 TAB PO HSPRN Scheduled PRN Acetaminophen With Codeine (Tylenol With Codeine #3 Tablet), 1 TAB PO Q6H PRN for pain Butalb/Acetaminophen/Caffeine (Fioricet Tab), 1 EACH PO TID PRN for headache Carisoprodol (Soma), 1 TABLET PO Q6H PRN for muscle spasms Cyclobenzaprine* (Cyclobenzaprine*), 1 TABLET PO Q8H PRN for muscle spasms Cyclobenzaprine* (Cyclobenzaprine*), 1 TABLET PO Q8H PRN for muscle spasms Cyclobenzaprine* (Cyclobenzaprine*), 1 TABLET PO Q8H PRN for muscle spasms Cyclobenzaprine* (Cyclobenzaprine*), 1 TABLET PO Q8H PRN for muscle spasms Cyclobenzaprine* (Cyclobenzaprine*), 1 TABLET PO Q8H PRN for muscle spasms Ondansetron (Zofran Odt), 8 MG PO QID PRN for nausea Phenazopyridine HCl (Pyridium), 1 TAB PO Q8H PRN for pain Sumatriptan Succinate* (Imitrex*), 1 TABLET PO UD PRN for headache Tramadol Hcl (Tramadol Hcl), 50-100 MG PO Q8H PRN for pain Miscellaneous Medications Tramadol Hcl (Tramadol Hcl), (Reported) Past Medical History Past Medical History: Headache, Migraine, Seizures, Peptic Ulcer Disease, UTI, Chronic Pain, Chronic Back Pain, Cervical Cancer/Dysplasia, *PSYCH*, Anxiety, Bipolar, Depression Past Surgical History: orthopedic surgeries, tonsillectomy Smoking: Non-Smoker Alcohol Use: None Drug Use: none Lives with: Spouse, Family Lives In: Home Occupation: unemployed Review of Systems All Other Systems at this time: Reviewed and Negative Constitutional: Denies: fever, chills Musc: Reports: joint pain, joint swelling Integ: Denies: change in color Physical Exam Physical Exam Vital Signs: RN Vital Signs have been reviewed: Yes, Temperature: 97.4, Source: Temporal, Heart Rate: 86, Respiratory Rate: 20, BP: 164/101, Pulse Oximetry: 98, Weight: 86.100 Oxygen Flow Rate: 0 General Appearance: alert, WD/WN, moderate distress Head: normal inspection Face: normal inspection Pupils/EOM/Fundus: PERRLA Chest: no accessory muscle use Cardiovascular: normal peripheral pulses Gastrointestinal: normal palpation Extremities: inflammation, swelling Neurologic: oriented x4 Motor / Sensory: no motor deficit, no sensory deficit Psychiatric: anxiety Skin: normal color, warm/dry; No: rash, erythema Lymphatic: no adenopathy Progress Results/Orders Results/Orders Vital Signs 06/19/24 06/19/24 21:39 22:17 Temp 97.4 Pulse 86 Resp 20 20 B/P (MAP) 164/101 Pulse Ox 98 O2 Flow Rate 0 Medical Decision Making Differential Diagnosis Examination history consistent with acute postsurgical pain syndrome caused by a mechanical fall. Do not suspect internal derangement. Patient was provided pain management in the emergency department outpatient prescription. She un derstands that follow up with orthopedist on Saturday for consideration of articulating knee brace along with physical therapy. She is otherwise healing well without signs of septic knee. Departure Disposition: HOME / SELF CARE / HOMELESS Impression: Primary Impression: Knee pain Qualified Codes: M25.562 - Pain in left knee Condition: Improved Discharge Instructions: Acute Knee Pain, Adult, Arthritis Additional Instructions: Please begin pain medicine as directed and continue with ibuprofen. Make follow up appointment with your orthopedic office for re-evaluation and consideration for physical therapy and articulating knee brace. Thank you for visiting emergency department [facility]. Referrals: NO PRIMARY CARE PROVIDER (PCP) Prescriptions Hydrocodone Bit/Acetaminophen 5/325 MG (Gaston 5/325 MG) 5 Mg/325 Mg Tablet 1 TAB PO TID PRN PRN for pain for 5 Days, #15 TAB Prov: FOREST WALLACE 06/19/24 Education Educated: Patient Educated regarding: diagnosis, treatment Signature Scribe Signature: . Attestation: . FOREST WALLACE PAC June 19, 2024 22:27
[2024-06-19 22:37] VITALS: BP 135/78; PULSE 88; TEMP 97.4; O2SAT 98
[2024-06-19] MEDS: HYDROcodone/acetaminophen 5mg/325mg tablet PO ONE (22:50)
[2024-06-19 22:56] VITALS: RESP 18
== END 2024-06-19 22:57 | disposition home or self-care (01) ==
LOC: ER 21:26
DX: M25.562 Pain in left knee (principal); G89.29 Other chronic pain; M54.9 Dorsalgia, unspecified; G43.909 Migraine, unspecified, not intractable, without status migrainosus; F32.A Depression, unspecified; F41.9 Anxiety disorder, unspecified; Z56.0 Unemployment, unspecified; Z85.41 Personal history of malignant neoplasm of cervix uteri; Z79.899 Other long term (current) drug therapy; Z98.890 Other specified postprocedural states
CPT/HCPCS: 99284